=== PATIENT | female | born 1985 | race Caucasian/White ===

== ENCOUNTER 2016-07-27 07:45 | Outpatient (CLI) | payer OTHER ==
--- NOTE | 2016-07-27 09:33 | Ultrasound Report ---
ULTRASOUND ABDOMEN LIMITED INDICATION: Nausea, vomiting. Patient is 34 weeks . COMPARISON: None similar at this institution. FINDINGS: Right upper quadrant sonography demonstrates normal hepatic contours with slight nonspecific coarsening. No focal suspicious lesions or biliary dilatation. Few small echogenic gallstones measure up to 1.1 cm in size. Gallbladder wall thickness is 2 mm. No pericholecystic fluid. Common bile duct is 2 mm. Included pancreas, nonaneurysmal abdominal aorta, IVC and the right kidney appear within normal limits. CONCLUSION: Cholelithiasis without other acute sonographic abnormality, as described. Please correlate. Thank you for the opportunity to participate in this patient's care.
== END 2016-07-27 07:46 | disposition home or self-care (01) ==
LOC: US 07:45
PROVIDERS: ATTEND Obstetrics & Gynecology
DX: O99.613 Diseases of the digestive system complicating pregnancy, third trimester (principal); O21.2 Late vomiting of pregnancy; Z3A.34 34 weeks gestation of pregnancy
CPT/HCPCS: 76705

== ENCOUNTER 2016-08-29 20:39 | Inpatient (IN) | payer OTHER ==
[2016-08-29] MEDS ORDERED: CERVIDIL VG ONE (22:40)
--- NOTE | 2016-08-29 22:56 | History and Physical Report ---
History of Present Illness Date of examination: 08/29/16 Date of admission: 08/29/16 20:39 Chief complaint: induction of labor History of present illness: Pt is a 30 year old [place] female primigravida PATRICIA 09/05/16 at 39w0d who presents for induction of labor per MFM secondary to left pylectasis. She denies contractions, leakage of fluid, or vaginal bleeding. She has had care at [facility] since 11 wks complicated by left pyelectasis, cholethiasis, second trimester bleeding, nausea/vomiting and glucose intolerance with normal 3 hr GTT. She is GBS negative. Past History Past Medical History: other (cholelithiasis ) Past Surgical History: no surgical history Family/Genetic History: none Social history: no significant social history, - Obstetrical History Expected Date of Delivery: 09/05/16 Actual Gestation: 39 Week(s) 0 Day(s) : 1 Medications and Allergies Allergies Allergy/AdvReac Type Severity Reaction Status Date / Time No Known Allergies Allergy Verified 08/29/16 22:44 Review of Systems All systems: negative - Vital Signs Vital signs: Vital Signs Pulse BP 109 H 131/81 08/29/16 22:18 08/29/16 22:18 Temp Pulse Resp BP Pulse Ox 109 H 131/81 08/29/16 22:18 08/29/16 22:18 - Physical Exam Breasts: Positive: deferred Cardiovascular: Regular rate Lungs: Positive: Clear to auscultation Abdomen: Positive: soft (gravid ) Uterus: Positive: enlarged (gravid ) Extremities: Positive: normal - Obstetrical FHR: category 1 Uterine Contraction Monitor Mode: External Cervical Dilatation: 0 Cervical Effacement Percentage: 30 station: -2 Uterine Contraction Pattern: Absent Uterine Tone Measurement Phase: Resting Results All other labs normal. Assessment and Plan A: IUP at 39w0d Left pyelectasis with M recommendation for delivery at 38-39 wks GBS negative P: Admit to labor and delivery. Cervidil for cervical ripening. Routine intrapartum care.
[2016-08-30] MEDS ORDERED: LACTATED RINGERS 1,000 ML ONE (03:42)
[2016-08-30] MEDS: LACTATED RINGERS 1,000 ML IV SCH ×2 (03:55→07:39)
[2016-08-30] MEDS ORDERED: SUBLIMAZE ONE (05:34)
[2016-08-30] MEDS ORDERED: ZOFRAN ONE (05:34)
[2016-08-30] MEDS ORDERED: BRETHINE IVP PRN (05:35)
[2016-08-30] MEDS ORDERED: BRETHINE SUB-Q PRN (05:35)
[2016-08-30] MEDS ORDERED: MINERAL OIL PO PRN (05:35)
[2016-08-30] MEDS: ZOFRAN IV PRN (05:35)
[2016-08-30] MEDS ORDERED: NARCAN 0.4 MG/1 ML IV PRN (05:35)
[2016-08-30] MEDS ORDERED: SUBLIMAZE IV PRN (05:35)
[2016-08-30] MEDS ORDERED: XYLOCAINE 2% INFILTRATI ONE (05:35)
[2016-08-30] MEDS ORDERED: ePHEDrine SULFATE IV PRN (05:35)
[2016-08-30] MEDS ORDERED: PITOCin/NS 20 UNIT/1000ML DRIP 20 UNITS/1,000 ML BAG IV SCH (06:00)
[2016-08-30 06:38] LABS: Hemoglobin 11.7 gm/dl (10.1-14.3); Mean Corpuscular HGB Conc 33 % (30-34); Mean Corpuscular Volume 75 fl (79-97); Platelet Count 193 K/mm3 (140-440); Red Blood Count 4.78 M/mm3 (3.65-5.03); Red Cell Distribution Width 15.3 % (13.2-15.2); White Blood Count 12.9 K/mm3 (4.5-11.0)
[2016-08-30 06:43] LABS: Mean Corpuscular Hemoglobin 25 pg (28-32)
--- NOTE | 2016-08-30 08:26 | Progress Note ---
<THIAGO MARINA - Last Filed: 08/30/16 08:22> Assessment and Plan A: IUP at 39 weeks Induction of labor secondary to cholelithiasis P: Cervidil to be removed at 11:30 Subjective - Subjective Date of service: 08/30/16 Patient reports: movement normal, contractions, no new complaints, no loss of fluid, no vaginal bleeding Objective - Vital Signs Vital Signs: Vital Signs - 12hr 08/29/16 08/29/16 08/30/16 22:18 23:31 00:31 Temperature Pulse Rate 109 H 106 H 99 H Respiratory Rate Blood Pressure 131/81 117/74 121/77 O2 Sat by Pulse Oximetry 08/30/16 08/30/16 08/30/16 00:59 01:01 01:04 Temperature 98.0 F Pulse Rate 105 H 105 H Respiratory 20 Rate Blood Pressure 127/78 O2 Sat by Pulse 99 99 Oximetry 08/30/16 08/30/16 08/30/16 01:09 01:14 01:19 Temperature Pulse Rate 105 H 105 H 114 H Respiratory Rate Blood Pressure O2 Sat by Pulse 99 99 99 Oximetry 08/30/16 08/30/16 08/30/16 01:24 01:29 01:34 Temperature Pulse Rate 101 H 104 H 94 H Respiratory Rate Blood Pressure O2 Sat by Pulse 99 99 99 Oximetry 08/30/16 08/30/16 08/30/16 01:39 01:44 01:49 Temperature Pulse Rate 99 H 100 H 102 H Respiratory Rate Blood Pressure O2 Sat by Pulse 99 99 99 Oximetry 08/30/16 08/30/16 08/30/16 01:54 02:05 02:10 Temperature Pulse Rate 103 H 107 H 102 H Respiratory Rate Blood Pressure O2 Sat by Pulse 99 99 99 Oximetry 08/30/16 08/30/16 08/30/16 02:15 02:20 02:25 Temperature Pulse Rate 99 H 98 H 89 Respiratory Rate Blood Pressure O2 Sat by Pulse 100 99 99 Oximetry 08/30/16 08/30/16 08/30/16 02:30 02:35 02:40 Temperature Pulse Rate 96 H 99 H 91 H Respiratory Rate Blood Pressure O2 Sat by Pulse 99 99 100 Oximetry 08/30/16 08/30/16 08/30/16 02:45 02:50 02:55 Temperature Pulse Rate 107 H 95 H 99 H Respiratory Rate Blood Pressure O2 Sat by Pulse 100 99 99 Oximetry 08/30/16 08/30/16 08/30/16 03:00 03:05 03:10 Temperature Pulse Rate 88 90 99 H Respiratory Rate Blood Pressure O2 Sat by Pulse 99 100 99 Oximetry 08/30/16 08/30/16 08/30/16 03:15 03:20 03:25 Temperature Pulse Rate 100 H 106 H 99 H Respiratory Rate Blood Pressure O2 Sat by Pulse 99 99 99 Oximetry 08/30/16 08/30/16 08/30/16 03:29 03:30 03:35 Temperature Pulse Rate 104 H 96 H 96 H Respiratory Rate Blood Pressure 97/52 O2 Sat by Pulse 99 99 Oximetry 08/30/16 08/30/16 08/30/16 03:36 03:40 05:35 Temperature 97.5 F L Pulse Rate 109 H Respiratory 20 20 Rate Blood Pressure O2 Sat by Pulse 99 Oximetry 08/30/16 07:39 Temperature Pulse Rate 99 H Respiratory Rate Blood Pressure 116/72 O2 Sat by Pulse Oximetry - Exam Breasts: deferred Abdomen: Present: normal appearance FHR: category 1 Uterine Contraction Monitor Mode: External Uterine Contraction Frequency (min): 2-4 Uterine Contraction Duration: 60-80 Uterine Contraction Pattern: Regular Uterine Tone Measurement Phase: Resting Uterine Contraction Intensity: Moderate - Labs Labs: Abnormal Labs 08/30/16 05:51 WBC 12.9 H MCV 75 L MCH 25 L RDW 15.3 H Laboratory Results - last 24 hr 08/29/16 08/30/16 23:10 05:51 WBC 12.9 H RBC 4.78 Hgb 11.7 Hct 36.0 MCV 75 L MCH 25 L MCHC 33 RDW 15.3 H Plt Count 193 Blood Type O POSITIVE Antibody Screen TNR <MADELINE HINKLE - Last Filed: 08/30/16 21:37> Subjective - Subjective Date of service: 08/30/16 Principal diagnosis: Induction of labor secondary to left pyelectasis per [facility] recommendation Objective - Vital Signs Vital Signs: Vital Signs - 12hr 08/30/16 08/30/16 08/30/16 09:59 16:15 16:45 Temperature 98.2 F Pulse Rate 99 H 91 H Pulse Rate [ 89 From Monitor] Respiratory 18 Rate Blood Pressure 129/74 114/71 Blood Pressure 114/71 [Left Arm] O2 Sat by Pulse 99 99 Oximetry 08/30/16 08/30/16 08/30/16 20:17 20:22 20:26 Temperature 98.3 F Pulse Rate 93 H 94 H 84 Pulse Rate [ 91 H From Monitor] Respiratory 18 Rate Blood Pressure 114/76 Blood Pressure 114/76 [Left Arm] O2 Sat by Pulse 100 99 Oximetry 08/30/16 08/30/16 08/30/16 20:27 20:32 20:37 Temperature Pulse Rate 106 H 93 H 94 H Pulse Rate [ From Monitor] Respiratory Rate Blood Pressure Blood Pressure [Left Arm] O2 Sat by Pulse 100 100 100 Oximetry 08/30/16 08/30/16 08/30/16 20:42 20:47 20:52 Temperature Pulse Rate 89 91 H 89 Pulse Rate [ From Monitor] Respiratory Rate Blood Pressure Blood Pressure [Left Arm] O2 Sat by Pulse 99 98 99 Oximetry 08/30/16 08/30/16 08/30/16 20:56 20:57 21:02 Temperature Pulse Rate 82 81 85 Pulse Rate [ From Monitor] Respiratory Rate Blood Pressure 126/84 Blood Pressure [Left Arm] O2 Sat by Pulse 99 99 Oximetry 08/30/16 08/30/16 21:07 21:26 Temperature Pulse Rate 83 90 Pulse Rate [ From Monitor] Respiratory Rate Blood Pressure 116/78 Blood Pressure [Left Arm] O2 Sat by Pulse 99 Oximetry - Labs Labs: Abnormal Labs 08/30/16 05:51 WBC 12.9 H MCV 75 L MCH 25 L RDW 15.3 H Laboratory Results - last 24 hr 08/29/16 08/30/16 08/30/16 23:10 05:51 05:51 WBC 12.9 H RBC 4.78 Hgb 11.7 Hct 36.0 MCV 75 L MCH 25 L MCHC 33 RDW 15.3 H Plt Count 193 RPR Nonreactive Blood Type O POSITIVE Antibody Screen TNR KATHLEEN Antibody Screen Negative
[2016-08-30] MEDS: PITOCin/NS 30 UNIT/500ML 30 UNITS/500 ML BAG IV SCH (14:00)
--- NOTE | 2016-08-30 14:13 | Progress Note ---
Assessment and Plan A: IUP at term Induction of labor Cervidil removed at 1130 No cervical change P: Afternoon care Low dose Pitocin Subjective - Subjective Date of service: 08/30/16 Patient reports: movement normal, contractions (Mild lower abd pressure), no new complaints, no loss of fluid, no vaginal bleeding Objective - Vital Signs Vital Signs: Vital Signs - 12hr 08/30/16 08/30/16 08/30/16 02:15 02:20 02:25 Temperature Pulse Rate 99 H 98 H 89 Respiratory Rate Blood Pressure O2 Sat by Pulse 100 99 99 Oximetry 08/30/16 08/30/16 08/30/16 02:30 02:35 02:40 Temperature Pulse Rate 96 H 99 H 91 H Respiratory Rate Blood Pressure O2 Sat by Pulse 99 99 100 Oximetry 08/30/16 08/30/16 08/30/16 02:45 02:50 02:55 Temperature Pulse Rate 107 H 95 H 99 H Respiratory Rate Blood Pressure O2 Sat by Pulse 100 99 99 Oximetry 08/30/16 08/30/16 08/30/16 03:00 03:05 03:10 Temperature Pulse Rate 88 90 99 H Respiratory Rate Blood Pressure O2 Sat by Pulse 99 100 99 Oximetry 08/30/16 08/30/16 08/30/16 03:15 03:20 03:25 Temperature Pulse Rate 100 H 106 H 99 H Respiratory Rate Blood Pressure O2 Sat by Pulse 99 99 99 Oximetry 08/30/16 08/30/16 08/30/16 03:29 03:30 03:35 Temperature Pulse Rate 104 H 96 H 96 H Respiratory Rate Blood Pressure 97/52 O2 Sat by Pulse 99 99 Oximetry 08/30/16 08/30/16 08/30/16 03:36 03:40 05:35 Temperature 97.5 F L Pulse Rate 109 H Respiratory 20 20 Rate Blood Pressure O2 Sat by Pulse 99 Oximetry 08/30/16 08/30/16 07:39 09:59 Temperature Pulse Rate 99 H 99 H Respiratory Rate Blood Pressure 116/72 129/74 O2 Sat by Pulse Oximetry - Exam Abdomen: Present: normal appearance FHR: category 1 Uterine Contraction Monitor Mode: External Uterine Contraction Frequency (min): 2 Uterine Contraction Duration: 50-80 Uterine Contraction Pattern: Regular Uterine Tone Measurement Phase: Resting Uterine Contraction Intensity: Mild - Labs Labs: Abnormal Labs 08/30/16 05:51 WBC 12.9 H MCV 75 L MCH 25 L RDW 15.3 H Laboratory Results - last 24 hr 08/29/16 08/30/16 08/30/16 23:10 05:51 05:51 WBC 12.9 H RBC 4.78 Hgb 11.7 Hct 36.0 MCV 75 L MCH 25 L MCHC 33 RDW 15.3 H Plt Count 193 RPR Nonreactive Blood Type O POSITIVE Antibody Screen TNR KATHLEEN Antibody Screen Negative
[2016-08-31] MEDS: LACTATED RINGERS 1,000 ML IV SCH ×3 (00:30→18:05)
[2016-08-31] MEDS: ZOFRAN IV PRN (01:15)
--- NOTE | 2016-08-31 07:44 | Progress Note ---
Assessment and Plan A: IUP at term Induction( Cervidil night 1, Low dose Pitocin) Unfavorable cervix P: AM care Cytotec Subjective - Subjective Date of service: 08/31/16 Principal diagnosis: Induction of labor secondary to left pyelectasis per [facility] recommendation Patient reports: movement normal, contractions (Mild lower abd pressure), no new complaints, no loss of fluid, no vaginal bleeding Objective - Vital Signs Vital Signs: Vital Signs - 12hr 08/30/16 08/30/16 08/30/16 20:17 20:22 20:26 Temperature 98.3 F Pulse Rate 93 H 94 H 84 Pulse Rate [ 91 H From Monitor] Respiratory 18 Rate Blood Pressure 114/76 Blood Pressure 114/76 [Left Arm] O2 Sat by Pulse 100 99 Oximetry 08/30/16 08/30/16 08/30/16 20:27 20:32 20:37 Temperature Pulse Rate 106 H 93 H 94 H Pulse Rate [ From Monitor] Respiratory Rate Blood Pressure Blood Pressure [Left Arm] O2 Sat by Pulse 100 100 100 Oximetry 08/30/16 08/30/16 08/30/16 20:42 20:47 20:52 Temperature Pulse Rate 89 91 H 89 Pulse Rate [ From Monitor] Respiratory Rate Blood Pressure Blood Pressure [Left Arm] O2 Sat by Pulse 99 98 99 Oximetry 08/30/16 08/30/16 08/30/16 20:56 20:57 21:02 Temperature Pulse Rate 82 81 85 Pulse Rate [ From Monitor] Respiratory Rate Blood Pressure 126/84 Blood Pressure [Left Arm] O2 Sat by Pulse 99 99 Oximetry 08/30/16 08/30/16 08/30/16 21:07 21:26 21:30 Temperature 98.0 F Pulse Rate 83 90 Pulse Rate [ 90 From Monitor] Respiratory 18 Rate Blood Pressure 116/78 Blood Pressure 116/78 [Left Arm] O2 Sat by Pulse 99 Oximetry 08/30/16 08/30/16 08/30/16 22:00 22:14 22:19 Temperature 98.5 F Pulse Rate 92 H 91 H Pulse Rate [ 90 From Monitor] Respiratory 18 Rate Blood Pressure Blood Pressure 116/78 [Left Arm] O2 Sat by Pulse 100 99 Oximetry 08/30/16 08/30/16 08/30/16 22:24 22:26 22:29 Temperature Pulse Rate 91 H 88 88 Pulse Rate [ From Monitor] Respiratory Rate Blood Pressure 112/73 Blood Pressure [Left Arm] O2 Sat by Pulse 100 100 Oximetry 08/30/16 08/30/16 08/30/16 22:34 22:39 22:44 Temperature Pulse Rate 91 H 89 91 H Pulse Rate [ From Monitor] Respiratory Rate Blood Pressure Blood Pressure [Left Arm] O2 Sat by Pulse 99 100 99 Oximetry 08/30/16 08/30/16 08/30/16 22:49 22:54 22:56 Temperature Pulse Rate 100 H 90 95 H Pulse Rate [ From Monitor] Respiratory Rate Blood Pressure 104/57 Blood Pressure [Left Arm] O2 Sat by Pulse 100 100 Oximetry 08/30/16 08/30/16 08/30/16 22:59 23:04 23:09 Temperature Pulse Rate 88 96 H 92 H Pulse Rate [ From Monitor] Respiratory Rate Blood Pressure Blood Pressure [Left Arm] O2 Sat by Pulse 99 99 100 Oximetry 08/30/16 08/30/16 08/30/16 23:14 23:19 23:24 Temperature Pulse Rate 95 H 90 88 Pulse Rate [ From Monitor] Respiratory Rate Blood Pressure Blood Pressure [Left Arm] O2 Sat by Pulse 100 100 100 Oximetry 08/30/16 08/30/16 08/30/16 23:27 23:29 23:34 Temperature Pulse Rate 84 80 82 Pulse Rate [ From Monitor] Respiratory Rate Blood Pressure 108/70 Blood Pressure [Left Arm] O2 Sat by Pulse 100 100 Oximetry 08/30/16 08/30/16 08/30/16 23:39 23:44 23:49 Temperature Pulse Rate 90 87 92 H Pulse Rate [ From Monitor] Respiratory Rate Blood Pressure Blood Pressure [Left Arm] O2 Sat by Pulse 100 100 99 Oximetry 08/30/16 08/30/16 08/30/16 23:54 23:56 23:59 Temperature Pulse Rate 93 H 86 78 Pulse Rate [ From Monitor] Respiratory Rate Blood Pressure 118/80 Blood Pressure [Left Arm] O2 Sat by Pulse 99 99 Oximetry 08/31/16 08/31/16 08/31/16 00:04 00:25 00:26 Temperature Pulse Rate 81 86 86 Pulse Rate [ From Monitor] Respiratory Rate Blood Pressure 126/69 Blood Pressure [Left Arm] O2 Sat by Pulse 99 99 Oximetry 08/31/16 08/31/16 08/31/16 00:30 00:35 00:40 Temperature Pulse Rate 86 80 111 H Pulse Rate [ From Monitor] Respiratory Rate Blood Pressure Blood Pressure [Left Arm] O2 Sat by Pulse 99 99 99 Oximetry 08/31/16 08/31/16 08/31/16 00:45 00:50 00:55 Temperature Pulse Rate 101 H 89 83 Pulse Rate [ From Monitor] Respiratory Rate Blood Pressure Blood Pressure [Left Arm] O2 Sat by Pulse 99 99 99 Oximetry 08/31/16 08/31/16 08/31/16 00:57 01:00 01:05 Temperature Pulse Rate 82 82 92 H Pulse Rate [ From Monitor] Respiratory Rate Blood Pressure 110/73 Blood Pressure [Left Arm] O2 Sat by Pulse 99 99 Oximetry 08/31/16 08/31/16 08/31/16 01:10 01:15 01:20 Temperature Pulse Rate 78 78 86 Pulse Rate [ From Monitor] Respiratory Rate Blood Pressure Blood Pressure [Left Arm] O2 Sat by Pulse 99 99 99 Oximetry 08/31/16 08/31/16 08/31/16 01:25 01:26 01:30 Temperature 97.2 F L Pulse Rate 86 100 H 84 Pulse Rate [ 100 H From Monitor] Respiratory 18 Rate Blood Pressure 102/55 Blood Pressure 102/55 [Left Arm] O2 Sat by Pulse 98 98 Oximetry 08/31/16 08/31/16 08/31/16 01:35 01:40 01:45 Temperature Pulse Rate 78 85 85 Pulse Rate [ From Monitor] Respiratory Rate Blood Pressure Blood Pressure [Left Arm] O2 Sat by Pulse 98 99 98 Oximetry 08/31/16 08/31/16 08/31/16 01:50 01:55 01:57 Temperature Pulse Rate 86 82 92 H Pulse Rate [ From Monitor] Respiratory Rate Blood Pressure 93/55 Blood Pressure [Left Arm] O2 Sat by Pulse 99 98 Oximetry 08/31/16 08/31/16 08/31/16 02:00 02:05 02:10 Temperature Pulse Rate 78 75 86 Pulse Rate [ From Monitor] Respiratory Rate Blood Pressure Blood Pressure [Left Arm] O2 Sat by Pulse 98 99 98 Oximetry 08/31/16 08/31/16 08/31/16 02:21 02:26 02:31 Temperature Pulse Rate 90 107 H 83 Pulse Rate [ From Monitor] Respiratory Rate Blood Pressure 107/69 Blood Pressure [Left Arm] O2 Sat by Pulse 77 L 98 98 Oximetry 08/31/16 08/31/16 08/31/16 02:36 02:41 02:46 Temperature Pulse Rate 80 88 71 Pulse Rate [ From Monitor] Respiratory Rate Blood Pressure Blood Pressure [Left Arm] O2 Sat by Pulse 99 99 98 Oximetry 08/31/16 08/31/16 08/31/16 02:51 02:56 02:57 Temperature Pulse Rate 75 72 60 Pulse Rate [ From Monitor] Respiratory Rate Blood Pressure 104/66 Blood Pressure [Left Arm] O2 Sat by Pulse 99 99 Oximetry 08/31/16 08/31/16 08/31/16 03:01 03:06 03:11 Temperature Pulse Rate 78 72 75 Pulse Rate [ From Monitor] Respiratory Rate Blood Pressure Blood Pressure [Left Arm] O2 Sat by Pulse 97 98 97 Oximetry 08/31/16 08/31/16 08/31/16 03:16 03:21 03:26 Temperature Pulse Rate 76 75 79 Pulse Rate [ From Monitor] Respiratory Rate Blood Pressure 105/68 Blood Pressure [Left Arm] O2 Sat by Pulse 97 98 99 Oximetry 08/31/16 08/31/16 08/31/16 03:31 03:36 03:41 Temperature Pulse Rate 85 76 76 Pulse Rate [ From Monitor] Respiratory Rate Blood Pressure Blood Pressure [Left Arm] O2 Sat by Pulse 97 97 99 Oximetry 08/31/16 08/31/16 08/31/16 03:46 03:51 03:56 Temperature Pulse Rate 84 79 79 Pulse Rate [ From Monitor] Respiratory Rate Blood Pressure 101/55 Blood Pressure [Left Arm] O2 Sat by Pulse 99 99 99 Oximetry 08/31/16 08/31/16 08/31/16 04:01 04:06 04:11 Temperature Pulse Rate 85 86 81 Pulse Rate [ From Monitor] Respiratory Rate Blood Pressure Blood Pressure [Left Arm] O2 Sat by Pulse 99 98 99 Oximetry 08/31/16 08/31/16 08/31/16 04:16 04:21 04:26 Temperature Pulse Rate 83 75 63 Pulse Rate [ From Monitor] Respiratory Rate Blood Pressure 105/64 Blood Pressure [Left Arm] O2 Sat by Pulse 99 98 99 Oximetry 08/31/16 08/31/16 08/31/16 04:31 04:36 04:41 Temperature Pulse Rate 69 63 69 Pulse Rate [ From Monitor] Respiratory Rate Blood Pressure Blood Pressure [Left Arm] O2 Sat by Pulse 99 99 99 Oximetry 08/31/16 08/31/16 08/31/16 04:44 04:46 04:51 Temperature Pulse Rate 73 63 67 Pulse Rate [ From Monitor] Respiratory Rate Blood Pressure 103/66 Blood Pressure [Left Arm] O2 Sat by Pulse 99 98 Oximetry 08/31/16 08/31/16 08/31/16 04:56 05:01 05:06 Temperature Pulse Rate 74 84 66 Pulse Rate [ From Monitor] Respiratory Rate Blood Pressure 106/67 Blood Pressure [Left Arm] O2 Sat by Pulse 99 100 99 Oximetry 08/31/16 08/31/16 08/31/16 05:11 05:16 05:21 Temperature Pulse Rate 69 76 69 Pulse Rate [ From Monitor] Respiratory Rate Blood Pressure Blood Pressure [Left Arm] O2 Sat by Pulse 98 99 98 Oximetry 08/31/16 08/31/16 08/31/16 05:26 05:31 05:36 Temperature Pulse Rate 68 69 73 Pulse Rate [ From Monitor] Respiratory Rate Blood Pressure 98/63 Blood Pressure [Left Arm] O2 Sat by Pulse 100 98 98 Oximetry 08/31/16 08/31/16 08/31/16 05:41 05:46 05:51 Temperature Pulse Rate 77 80 67 Pulse Rate [ From Monitor] Respiratory Rate Blood Pressure Blood Pressure [Left Arm] O2 Sat by Pulse 98 97 97 Oximetry 08/31/16 08/31/16 08/31/16 05:56 06:01 06:06 Temperature Pulse Rate 73 70 74 Pulse Rate [ From Monitor] Respiratory Rate Blood Pressure 102/68 Blood Pressure [Left Arm] O2 Sat by Pulse 98 98 97 Oximetry 08/31/16 08/31/16 08/31/16 06:11 06:16 06:21 Temperature Pulse Rate 74 66 75 Pulse Rate [ From Monitor] Respiratory Rate Blood Pressure Blood Pressure [Left Arm] O2 Sat by Pulse 98 97 98 Oximetry 08/31/16 08/31/16 08/31/16 06:26 06:31 06:36 Temperature Pulse Rate 66 68 63 Pulse Rate [ From Monitor] Respiratory Rate Blood Pressure 99/61 Blood Pressure [Left Arm] O2 Sat by Pulse 99 99 99 Oximetry 08/31/16 08/31/16 08/31/16 06:41 06:47 06:51 Temperature Pulse Rate 68 75 74 Pulse Rate [ From Monitor] Respiratory Rate Blood Pressure Blood Pressure [Left Arm] O2 Sat by Pulse 99 99 99 Oximetry 08/31/16 08/31/16 08/31/16 06:56 07:15 07:26 Temperature Pulse Rate 73 73 86 Pulse Rate [ From Monitor] Respiratory Rate Blood Pressure 100/65 111/70 111/76 Blood Pressure [Left Arm] O2 Sat by Pulse 100 Oximetry - Exam Abdomen: Present: normal appearance FHR: category 1 Uterine Contraction Monitor Mode: External Uterine Contraction Frequency (min): irregular Uterine Contraction Pattern: Irregular Uterine Tone Measurement Phase: Resting Uterine Contraction Intensity: Mild - Labs Labs: Abnormal Labs 08/30/16 05:51 WBC 12.9 H MCV 75 L MCH 25 L RDW 15.3 H Laboratory Results - last 24 hr 08/29/16 08/30/16 23:10 05:51 RPR Nonreactive Blood Type O POSITIVE Antibody Screen TNR KATHLEEN Antibody Screen Negative
[2016-08-31] MEDS: CYTOTEC VG SCH ×3 (10:00→21:00)
[2016-09-01] MEDS: ZOFRAN IV PRN ×2 (00:33→07:38)
[2016-09-01] MEDS ORDERED: AMBIEN PO PRN (00:56)
[2016-09-01] MEDS: CYTOTEC VG SCH ×2 (01:20→05:30)
[2016-09-01] MEDS: STADOL IV PRN ×3 (03:46→10:21)
--- NOTE | 2016-09-01 07:54 | Progress Note ---
Assessment and Plan A: IUP at term Day 3 induction SROM-clear at 0630 Last dose of Cytotec at 0500 P: Active Devin;t Pitocin at 10 Epidural for pain Subjective - Subjective Principal diagnosis: Induction of labor secondary to left pyelectasis per [facility] recommendation Patient reports: new complaints (Pain), movement normal, contractions ( Pain with contractions), no loss of fluid (SROM-clear 0630), no vaginal bleeding Objective - Vital Signs Vital Signs: Vital Signs - 12hr 08/31/16 08/31/16 08/31/16 20:57 21:26 21:57 Temperature Pulse Rate 78 88 86 Pulse Rate [ From Monitor] Respiratory Rate Blood Pressure 118/73 119/78 126/76 Blood Pressure [Left Arm] O2 Sat by Pulse Oximetry 08/31/16 08/31/16 09/01/16 22:26 22:56 00:51 Temperature Pulse Rate 88 88 81 Pulse Rate [ From Monitor] Respiratory Rate Blood Pressure 102/58 124/76 116/78 Blood Pressure [Left Arm] O2 Sat by Pulse Oximetry 09/01/16 09/01/16 00:53 03:46 Temperature 98.7 F Pulse Rate 85 Pulse Rate [ 81 From Monitor] Respiratory 20 20 Rate Blood Pressure Blood Pressure 116/78 [Left Arm] O2 Sat by Pulse 99 Oximetry - Exam FHR: category 2 Uterine Contraction Monitor Mode: External Cervical Dilatation: 2 station: -3 Uterine Contraction Frequency (min): 4-6 Uterine Contraction Duration: 60-70 Uterine Contraction Pattern: Irregular Uterine Tone Measurement Phase: Resting Uterine Contraction Intensity: Mild - Labs Labs: Abnormal Labs 08/30/16 05:51 WBC 12.9 H MCV 75 L MCH 25 L RDW 15.3 H
[2016-09-01] MEDS: LACTATED RINGERS 1,000 ML IV SCH ×2 (08:42→10:22)
[2016-09-01] MEDS: PITOCin/NS 30 UNIT/500ML 30 UNITS/500 ML BAG IV SCH (11:05)
[2016-09-01] MEDS ORDERED: XYLOCAINE 2% INFILTRATI ONE (14:15)
[2016-09-01] MEDS ORDERED: METHERGINE IM ONE (14:42)
--- NOTE | 2016-09-01 15:03 | Procedure Note ---
OB Delivery Note - Delivery Date of Delivery: 09/01/16 (6-10oz male @ 1412) Surgeon: THIAGO MARINA Estimated blood loss: 300cc - Vaginal Delivery presentation: vertex Delivery position: OA Intrapartum events: uterine atony Delivery induction: other (oxytocin, Pitocin, cervidil) Delivery augmentation: pitocin Delivery monitor: external FHT, external uterine Route of delivery: Delivery placenta: spontaneous Delivery cord: 3 umbilical vessels Episiotomy: none Delivery laceration: 2nd degree Delivery repair: vicryl (3.[address] with 2% Lidociane) Anesthesia: epidural - Infant A at 5 minutes: 9 Infant Gender: Male (Complete @ 1317, pushed to viable male over intact perinieum and under epidural anethesia @ 1412. Spont. cry. Bulb suctioned and tactile stimulation. Placed to matrnal abdomen. Cord blood collected. Spont. placenta at 1433. IV infiltrated. bleeding heavy, fundus messaged firm, bleeding continued, bimanuel message. Pitocin 10 Im given. Bleeding controlled. Scant. Repair of 2nd degree laceration in usual fashion. Mother and infant bonding.)
[2016-09-01] MEDS ORDERED: DULCOLAX PR PRN (15:04)
[2016-09-01] MEDS ORDERED: LANSINOH TP PRN (15:04)
[2016-09-01] MEDS ORDERED: BENADRYL PO PRN (15:04)
[2016-09-01] MEDS ORDERED: TUCKS PAD TP PRN (15:04)
[2016-09-01] MEDS ORDERED: TYLENOL PO PRN (15:04)
[2016-09-01] MEDS ORDERED: SODIUM CHLORIDE FLUSH SYRINGE 10 ML IV NR (16:00)
[2016-09-01] MEDS: MOTRIN PO SCH (17:39)
[2016-09-01] MEDS: NORCO 5/325 PO PRN ×2 (17:40→21:30)
[2016-09-02] MEDS: MOTRIN PO SCH ×3 (00:02→18:35)
[2016-09-02 04:43] LABS: Hematocrit 30.4 % (30.3-42.9); Hemoglobin 9.7 gm/dl (10.1-14.3)
[2016-09-02] MEDS ORDERED: M-M-R II VACCINE SUB-Q ONE ×2 (06:00→15:04)
[2016-09-02] MEDS ORDERED: BOOSTRIX IM ONE ×2 (06:05→15:04)
--- NOTE | 2016-09-02 08:36 | Progress Note ---
Assessment and Plan A: PPD#1 s/p at term, left pyelectasis P: Routine care. Anticipate discharge tomorrow. Subjective - Subjective Date of service: 09/02/16 Principal diagnosis: Induction of labor secondary to left pyelectasis per [facility] recommendation Interval history: Pt reports heavy vaginal bleeding yesterday that is improving. She also feels tired and weak. Patient reports: voiding normally, pain well controlled, ambulating normally [facility]: doing well Objective - Vital Signs Latest vital signs: Vital Signs Temp Pulse Pulse Resp BP BP Pulse Ox 09/02/16 01:35 98.4 F 100 H 18 103/57 09/01/16 21:35 98.8 F 103 H 20 137/64 09/01/16 21:30 18 09/01/16 19:31 98.6 F 105 H 18 115/68 09/01/16 16:45 98.6 F 105 H 18 115/68 09/01/16 16:04 94 H 99 09/01/16 16:01 93 H 107/66 09/01/16 15:59 94 H 98 09/01/16 15:54 102 H 98 09/01/16 15:49 89 97 09/01/16 15:46 93 H 106/67 09/01/16 15:44 97 H 99 09/01/16 15:39 101 H 98 09/01/16 15:34 97 H 99 09/01/16 15:31 96 H 104/63 09/01/16 15:29 95 H 99 09/01/16 15:24 102 H 99 09/01/16 15:19 96 H 98 09/01/16 15:16 115 H 96/51 09/01/16 15:14 119 H 98 09/01/16 15:01 107 H 100/55 09/01/16 14:57 120 H 98 09/01/16 14:52 118 H 99 09/01/16 14:47 105 H 98 09/01/16 14:46 103 H 98/54 Intake and Output 09/01/16 09/02/16 09/02/16 22:59 06:59 14:59 Intake Total 240 360 Output Total 1000 300 Balance -760 60 Intake: Intake, Free Water 240 360 Output: Urine 1000 300 Void 1000 300 Other: Total, Output Amount 400 300 # Voids Void 1 Estimated Blood Loss 300 - Exam Breasts: Present: deferred Cardiovascular: Present: Regular rate Lungs: Present: Clear to auscultation Abdomen: Present: soft (obese ) Uterus: Present: fundal height at umbilicus Extremities: Present: edema (1+ ) - Labs Labs: Abnormal lab results 09/02/16 Range/Units 04:16 Hgb 9.7 L (10.1-14.3) gm/dl
--- NOTE | 2016-09-02 08:41 | Discharge Summary ---
Providers - Providers Date of Admission: 08/29/16 20:39 Date of discharge: 09/03/16 Attending physician: MADELINE HINKLE Primary care physician: MADELINE HINKLE Hospitalization Reason for admission: IUP at term Delivery: Procedure details: Please see delivery note. Episiotomy: none Laceration: vaginal side wall, 2nd degree Other procedures: none complications: none Discharge diagnosis: IUP at term delivered [place] baby: female Hospital course: Patient underwent induction of labor and ultimately went on to have a spontaneous vaginal delivery which she tolerated well. Her course complicated and she met discharge criteria on day #2. She'll follow- up in the office in 2 weeks for a laceration check. Condition at discharge: Stable Disposition: [id number] TO HOME OR SELFCARE - Discharge Diagnoses (1) pyelectasis Status: Acute (2) Term of female Status: Acute (3) Anemia affecting Status: Acute Qualifiers: Trimester: third trimester Qualified Code(s): O99.013 - Anemia complicating , third trimester Plan - Discharge Medications Prescriptions: Docusate Sodium [Colace] 100 mg PO BID PRN #60 capsule PRN Reason: Constipation Ferrous Sulfate [Feosol 325 MG tab] 325 mg PO BID #60 tablet HYDROcodone/APAP 5-325 [Ray 5/325] 1 each PO Q6HR PRN #30 tablet PRN Reason: Pain Ibuprofen [Motrin] 800 mg PO Q8HR PRN #30 tablet PRN Reason: Pain - Provider Discharge Summary Activity: routine, no sex for 6 weeks, no heavy lifting 4 weeks, no strenuous exercise Diet: routine Instructions: routine Additional instructions: [] Smoking cessation referral if applicable(refer to patient education folder for contact #) [] Refer to [facility] Booklet Call your doctor immediately for: * Fever > 100.5 * Heavy vaginal bleeding ( >1 pad per hour) * Severe persistent headache * Shortness of breath * Reddened, hot, painful area to leg or breast * Drainage or odor from incision. * Keep incision clean and dry at all times and follow doctor's instructions regarding bathing/showering - Follow up plan Follow up: MADELINE HINKLE MD [Primary Care Provider] - 09/15/16 (laceration check )
[2016-09-02] MEDS ORDERED: PRENATAL VITAMIN PO SCH (10:00)
[2016-09-02] MEDS: COLACE PO SCH ×2 (11:00→23:04)
[2016-09-02] MEDS ORDERED: DERMOPLAST TP PRN (14:43)
[2016-09-02] MEDS: NORCO 5/325 PO PRN (16:55)
[2016-09-03] MEDS: MOTRIN PO SCH ×2 (00:06→05:09)
[2016-09-03 15:19] VITALS: BP 120/68
== END 2016-09-03 13:55 | disposition home or self-care (01) | DRG 775 ==
LOC: LD 20:39 → OB 09-01 16:41
PROVIDERS: ADMIT Obstetrics & Gynecology; ATTEND Obstetrics & Gynecology
PROC: 10E0XZZ Delivery of Products of Conception, External Approach (ICD-10-PCS; principal; 2016-09-01)
PROC: 0KQM0ZZ Repair Perineum Muscle, Open Approach (ICD-10-PCS; 2016-09-01)
PROC: 3E033VJ Introduction of Other Hormone into Peripheral Vein, Percutaneous Approach (ICD-10-PCS; 2016-09-01)
PROC: 3E0P7GC Introduction of Other Therapeutic Substance into Female Reproductive, Via Natural or Artificial Opening (ICD-10-PCS; 2016-09-01)
PROC: 00HU33Z Insertion of Infusion Device into Spinal Canal, Percutaneous Approach (ICD-10-PCS; 2016-09-01)
PROC: 3E0S3CZ (ICD-10-PCS; 2016-09-01)
PROC: 3E0234Z Introduction of Serum, Toxoid and Vaccine into Muscle, Percutaneous Approach (ICD-10-PCS; 2016-09-02)
DX: O35.8XX0 Maternal care for other (suspected) fetal abnormality and damage, not applicable or unspecified (principal); O99.62 Diseases of the digestive system complicating childbirth; O99.02 Anemia complicating childbirth; D64.9 Anemia, unspecified; O62.2 Other uterine inertia; Z37.0 Single live birth; O70.1 Second degree perineal laceration during delivery; K80.20 Calculus of gallbladder without cholecystitis without obstruction; O42.12 Full-term premature rupture of membranes, onset of labor more than 24 hours following rupture; Z23 Encounter for immunization; Z3A.39 39 weeks gestation of pregnancy
CPT/HCPCS: 36415; 59200; 85014; 85018; 85027; 86592; 86850; 86900; 86901; 90471; 99211; G0463; J0595; J2210; J2405; J2590; J3010; J7120